=== PATIENT | male | born 1975 | race Caucasian/White ===

== ENCOUNTER 2018-06-18 14:15 | Emergency (ER) | payer OTHER, MEDICARE ==
[~2018-06-18] VITALS: Ht 177.8 cm; Wt 81.6 kg
--- OUTSIDE RECORDS SUMMARY | 2018-06-18 14:19 | XMS REPORT ---
Author Author Luann Lang [facility] Address [address] [place] [address] Care Team Providers Care Palm Gatherer Name Role Phone Luann Lang Unavailable PROBLEMS Type Condition ICD9-CM Code [id number] Code Onset Dates Condition Status SNOMED Code Problem Other chronic pain G89.29 Active 67048209 Problem PTSD (post-traumatic stress disorder) F43.10 Active 00696861 Problem Seasonal allergic rhinitis due to pollen J30.1 Active 98606032 ALLERGIES No Information SOCIAL HISTORY Never Assessed PLAN OF CARE VITAL SIGNS MEDICATIONS Medication Instructions Dosage Frequency Start Date End Date Duration Status Gabapentin 400 MG Orally Three times a day 1 capsule 8h 30 days Active BusPIRone HCl 10 MG Orally three times a day 2 tablets 8h 30 days Active Wellbutrin SR 150 MG Orally Twice a day 1 tablet 12h 30 days Active Zanaflex 4 MG Orally Three times a day 1 tablet as needed 8h 30 days Active Meloxicam 15 MG Orally Once a day 1 tablet 24h 30 days Active RESULTS No Results PROCEDURES No Known procedures IMMUNIZATIONS No Known Immunizations MEDICAL (GENERAL) HISTORY Type Description Date Medical History Post traumatic stress disorder (PTSD) Surgical History vasectomy 2004 Surgical History vasectomy reversal 2010 Surgical History Back surgery - nerve stimulator placement 2013
--- OUTSIDE RECORDS SUMMARY | 2018-06-18 14:20 | XMS REPORT ---
Author Author AN WEAVER Organization [facility] Address [address] [place] [address] Care Team Providers Care Weapons Engineer Name Role Phone AN WEAVER Unavailable PROBLEMS Type Condition ICD9-CM Code ZGH56-DA Code Onset Dates Condition Status SNOMED Code Problem PTSD (post-traumatic stress disorder) F43.10 Active 25757583 ALLERGIES No Information ENCOUNTERS Encounter Location Date Diagnosis [place] [id number] [place] [address] [phone]- [phone] Mar, Encounter for drug screening Z02.83 [place] [address] [place] [id number] [place] [address] 49411- 4464 Mar, PTSD (post-traumatic stress disorder) F43.10 [place] [address] [place] [id number] [place] [address] 19989- [phone] Feb, Lumbar neuritis M54.16 [place] [address] [place] [id number] [place] [address] 99145- 5387 Feb, PTSD (post-traumatic stress disorder) F43.10 [place] [address] [place] [id number] [place] [address] 87770- [phone] Feb, PTSD (post-traumatic stress disorder) F43.10 [place] [address] [place] [address] 57931- 2121 Jan, PTSD (post-traumatic stress disorder) F43.10 and Lumbar neuritis M54.16 IMMUNIZATIONS No Known Immunizations SOCIAL HISTORY Never Assessed REASON FOR VISIT Controlled Med Refill 02/22/17 PLAN OF CARE VITAL SIGNS MEDICATIONS Medication Instructions Dosage Frequency Start Date End Date Duration Status Xanax 1 MG Orally Twice a day 1 tablet 12h Jan, 28 days Active Oxycodone-Acetaminophen 10-325 MG Orally every 6 hrs 1 tablet as needed 6h Feb, 28 days Active RESULTS No Results PROCEDURES No Known procedures INSTRUCTIONS MEDICATIONS ADMINISTERED No Known Medications MEDICAL (GENERAL) HISTORY Type Description Date Medical History PTSD Medical History spinal stenosis Medical History anxiety Medical History depression Surgical History spinal stenosis surgery- fused L5 and S1 2010 Surgical History spinal stimulater 11/2011
--- OUTSIDE RECORDS SUMMARY | 2018-06-18 14:20 | XMS REPORT ---
Author Author Luann Lang [facility] Address [address] [place] [address] Care Team Providers Care Tobacco Farmworker Name Role Phone Luann Lang Unavailable PROBLEMS Type Condition ICD9-CM Code BYV78-VE Code Onset Dates Condition Status SNOMED Code Problem Other chronic pain G89.29 Active 62163582 Problem PTSD (post-traumatic stress disorder) F43.10 Active 08647963 Problem Seasonal allergic rhinitis due to pollen J30.1 Active 82115599 ALLERGIES Substance Reaction Event Type Date Status N.K.D.A. Unknown Non Drug Allergy June, Unknown SOCIAL HISTORY No smoking Hx information available PLAN OF CARE Activity Details Follow Up prn Reason:null VITAL SIGNS Heart Rate 105 /min 2016-07-18 Temperature 97.3 degrees Fahrenheit 2016-07-18 BMI 24.78 kg/m2 2016-07-18 Height 74 in 2016-07-18 Weight 193 lbs 2016-07-18 Blood pressure systolic 131 mm Hg 2016-07-18 Blood pressure diastolic 84 mm Hg 2016-07-18 MEDICATIONS Medication Instructions Dosage Frequency Start Date End Date Duration Status Zanaflex 4 MG Orally Three times a day 2 capsule as needed 8h Oct, 30 days Active Wellbutrin SR 150 MG Orally Twice a day 1 tablet 12h 30 days Active BusPIRone HCl 10 MG Orally three times a day 1 tablet 8h 30 days Active Oxycodone-Acetaminophen 10-325 MG Orally every 6 hrs 1 tablet as needed 6h Jul, 30 days Active Meloxicam 15 MG Orally Once a day 1 tablet 24h Oct, 30 days Active Gabapentin 400 MG Orally Three times a day 1 capsule 8h 30 days Active Valium 5 MG Orally Twice a day 1 tablet as needed 12h 30 days Active RESULTS No Results PROCEDURES Procedure Date Ordered Related Diagnosis Body Site INJ TRIAMCINOLONE ACETONIDE 10 MG July 18, 2016 DRAININJECT MJR JOINTBURSAARTHRO, ASP ANDOR INJ; MAJOR JT OR BURSA (EG, SHOULDER, HIP, KNEE JOINT, SUBACROMIALBURSA) July 18, 2016 OFFICEOUTPATIENT VISIT NEW OFFICE OR OTHER OUTPATIENT VISIT FOR THE EVALUATION AND MANAGEMENT OF A NEW PATIENT, WHICH REQUIRES THESE July 18, 2016 THERPROPHDIAG INJ SCIM THERAPEUTIC, PROPHYLACTIC, OR DIAGNOSTIC INJECTION ( SPECIFY SUBSTANCE OR DRUG); SUBCUTANEOUS OR INTRAMUSCULAR July 18, 2016 IMMUNIZATIONS Vaccine Route Administration Date Status Kenalog IM Intramuscular July 18, 2016 Administered
--- OUTSIDE RECORDS SUMMARY | 2018-06-18 14:20 | XMS REPORT ---
Author Author AN WEAVER Organization [facility] Address [address] [place] [address] Care Team Providers Care Lead Setter Name Role Phone MEG AN Unavailable PROBLEMS Type Condition ICD9-CM Code VLT87-PL Code Onset Dates Condition Status SNOMED Code Problem PTSD (post-traumatic stress disorder) F43.10 Active 78895317 ALLERGIES Substance Reaction Event Type Date Status Clonazepam anger Drug Allergy Feb, Active ENCOUNTERS Encounter Location Date Diagnosis [place] [id number] [place] [address] 54337- [phone] Mar, Encounter for drug screening Z02.[address] [address]- [address] Mar, PTSD (post-traumatic stress disorder) F43.10 [place] [address] [place] [id number] [place] [address] 72864- [phone] Feb, Lumbar neuritis M54.16 [place] [address] [place] [id number] [place] [address] 44796- 3182 Feb, PTSD (post-traumatic stress disorder) F43.10 [place] [address] [place] [id number] [place] [address] 91813- 0752 Feb, PTSD (post-traumatic stress disorder) F43.10 [place] [address] [place] [id number] [place] [address] [phone]- 7285 Jan, PTSD (post-traumatic stress disorder) F43.10 and Lumbar neuritis M54.16 IMMUNIZATIONS No Known Immunizations SOCIAL HISTORY Never Assessed REASON FOR VISIT Neuritis, medication no longer works-[place] PLAN OF CARE VITAL SIGNS Height 70.5 in 2017-03-11 Weight 193.6 lbs 2017-03-11 Temperature 97.8 degrees Fahrenheit 2017-03-11 Heart Rate 64 bpm 2017-03-11 Respiratory Rate 20 2017-03-11 BMI 27.38 kg/m2 2017-03-11 Blood pressure systolic 122 mmHg 2017-03-11 Blood pressure diastolic 68 mmHg 2017-03-11 MEDICATIONS Medication Instructions Dosage Frequency Start Date End Date Duration Status Mens Multivitamin Plus Active BuPROPion HCl ER (SR) 150 MG Orally Twice a day 1 tablet 12h Active Oxycodone-Acetaminophen 10-325 MG Orally every 6 hrs 1 tablet as needed 6h Feb, 28 days Active Xanax 1 MG Orally Twice a day 1 tablet 12h Jan, 28 days Active Tizanidine HCl 4 MG Orally 3 times a day PRN 1 tablet as needed Active BusPIRone HCl 10 mg Orally 3 times a day 2 tablets 8h Active Gabapentin 400 mg Orally 4 times a day 1 capsule 6h Active RESULTS No Results PROCEDURES Procedure Date Ordered Result Body Site [facility] VISIT ESTABLISHED PATIENT Mar 11, 2017 INSTRUCTIONS MEDICATIONS ADMINISTERED No Known Medications MEDICAL (GENERAL) HISTORY Type Description Date Medical History PTSD Medical History spinal stenosis Medical History anxiety Medical History depression Surgical History spinal stenosis surgery- fused L5 and S1 2010 Surgical History spinal stimulater 11/2011
--- OUTSIDE RECORDS SUMMARY | 2018-06-18 14:20 | XMS REPORT ---
Author Author AN WEAVER Organization [facility] Address [address] [place] [address] Care Team Providers Care Breaker Layer Name Role Phone AN WEAVER Unavailable PROBLEMS Type Condition ICD9-CM Code [id number] Code Onset Dates Condition Status SNOMED Code Problem PTSD (post-traumatic stress disorder) F43.10 Active 21611778 ALLERGIES No Information ENCOUNTERS Encounter Location Date Diagnosis [place] [id number] [place] [address] [phone]- [phone] Mar, Encounter for drug screening Z02.83 [place] [address] [place] [id number] [place] [address] 875856- 6280 Mar, PTSD (post-traumatic stress disorder) F43.10 [place] [address] [place] [id number] [place] [address] 15042- 3207 Feb, Lumbar neuritis M54.16 [place] [address] [place] [id number] [place] [address] 13789- 0932 Feb, PTSD (post-traumatic stress disorder) F43.10 [place] [address] [place] [id number] [place] [address] 70075- 7862 Feb, PTSD (post-traumatic stress disorder) F43.10 [place] [address] [place] [id number] [place] [address] 50386- 8669 Jan, PTSD (post-traumatic stress disorder) F43.10 and Lumbar neuritis M54.16 IMMUNIZATIONS No Known Immunizations SOCIAL HISTORY Never Assessed REASON FOR VISIT UDS PLAN OF CARE VITAL SIGNS MEDICATIONS Unknown Medications RESULTS Name Result Date Reference Range URINE DRUG SCREEN (IN HOUSE) 2017-03-22 Lot # [id number] Exp date 08/2018 Control + COCAINE Negative AMPH Negative MTD Negative THC POSITIVE OPIATE Negative BENZO POSITIVE PCP Negative BAR Negative OXY Negative MAMP Negative TCA Negative BUP Negative MDMA Negative PROCEDURES Procedure Date Ordered Result Body Site DRUG TEST PRSMV DIR OPT OBS Mar 22, 2017 INSTRUCTIONS MEDICATIONS ADMINISTERED No Known Medications MEDICAL (GENERAL) HISTORY Type Description Date Medical History PTSD Medical History spinal stenosis Medical History anxiety Medical History depression Surgical History spinal stenosis surgery- fused L5 and S1 2010 Surgical History spinal stimulater 11/2011
--- OUTSIDE RECORDS SUMMARY | 2018-06-18 14:20 | XMS REPORT ---
Author Author Luann Lang Organization [facility] Address [address] [place] [address] Care Team Providers Care Hydro Electric Station Operator Name Role Phone Luann Lang Unavailable PROBLEMS Type Condition ICD9-CM Code FXN72-MM Code Onset Dates Condition Status SNOMED Code Problem Other chronic pain G89.29 Active 46467451 Problem PTSD (post-traumatic stress disorder) F43.10 Active 95499291 Problem Seasonal allergic rhinitis due to pollen J30.1 Active 20786058 ALLERGIES No Information ENCOUNTERS Encounter Location Date Diagnosis [address] [place] [id number] Mar, [facility] [address] [place], [place] [id number] Jan, Other chronic pain G89.[address] [place] [id number] Oct, Other chronic pain G89.29 and PTSD (post-traumatic stress disorder ) F43.[address] [place] [id number] June, Dorsalgia, unspecified M54.9 ; Other chronic pain G89.29 ; PTSD ( post-traumatic stress disorder) F43.10 ; Cough R05 and Seasonal allergic rhinitis due to pollen J30.1 IMMUNIZATIONS No Known Immunizations SOCIAL HISTORY Never Assessed REASON FOR VISIT medication list PLAN OF CARE VITAL SIGNS MEDICATIONS Unknown Medications RESULTS No Results PROCEDURES No Known procedures INSTRUCTIONS MEDICATIONS ADMINISTERED No Known Medications MEDICAL (GENERAL) HISTORY Type Description Date Medical History Post traumatic stress disorder (PTSD) Surgical History vasectomy 2005 Surgical History vasectomy reversal 2010 Surgical History Back surgery - nerve stimulator placement 2013
--- OUTSIDE RECORDS SUMMARY | 2018-06-18 14:20 | XMS REPORT ---
Author Author AN WEAVER Organization [facility] Address [address] [place] [address] Care Team Providers Care Physically Impaired Teacher Name Role Phone AN WEAVER Unavailable PROBLEMS Type Condition ICD9-CM Code APJ79-DX Code Onset Dates Condition Status SNOMED Code Problem PTSD (post-traumatic stress disorder) F43.10 Active 52681790 ALLERGIES No Information ENCOUNTERS Encounter Location Date Diagnosis [place] [address] [place] [id number] [place] [address] [phone] Mar, 2017 Encounter for drug screening Z02.83 [place] [address] [place] [id number] [place] [address] [phone]- [phone] Mar, PTSD (post-traumatic stress disorder) F43.10 [place] [address] [place] [address] [id number] [place] [address] [phone]- 0944 Feb, Lumbar neuritis M54.16 [place] [address] [place] [address] [id number] [place] [address] 02982- [phone] Feb, PTSD (post-traumatic stress disorder) F43.10 [place] [address] [place] [address] [id number] [place] [address] [phone]- [phone] Feb, PTSD (post-traumatic stress disorder) F43.10 [place] [address] [place] [address] [id number] [place] [address] [phone] Jan, PTSD (post-traumatic stress disorder) F43.10 and Lumbar neuritis M54.16 IMMUNIZATIONS No Known Immunizations SOCIAL HISTORY Never Assessed REASON FOR VISIT PLAN OF CARE VITAL SIGNS MEDICATIONS Medication Instructions Dosage Frequency Start Date End Date Duration Status Xanax 1 MG Orally Twice a day 1 tablet 12h 08 Jan, 2017 28 days Active RESULTS No Results PROCEDURES No Known procedures INSTRUCTIONS MEDICATIONS ADMINISTERED No Known Medications MEDICAL (GENERAL) HISTORY Type Description Date Medical History PTSD Medical History spinal stenosis Medical History anxiety Medical History depression Surgical History spinal stenosis surgery- fused L5 and S1 2010 Surgical History spinal stimulater 11/2011
--- OUTSIDE RECORDS SUMMARY | 2018-06-18 14:20 | XMS REPORT ---
Author Author AN WEAVER Organization [facility] Address [address] [place] [address] Care Team Providers Care Circular Saw Filer Name Role Phone AN WEAVER Unavailable PROBLEMS Type Condition ICD9-CM Code [id number] Code Onset Dates Condition Status SNOMED Code Problem PTSD (post-traumatic stress disorder) F43.10 Active 03034315 ALLERGIES Substance Reaction Event Type Date Status Clonazepam anger Drug Allergy Jan, Active ENCOUNTERS Encounter Location Date Diagnosis [place] [id number] [place] [address] [phone] Mar, 2017 Encounter for drug screening Z02.[address] [phone]- [phone] Mar, PTSD (post-traumatic stress disorder) F43.10 [place] [address] [place] [id number] [place] [address] 43852- 0154 Feb, Lumbar neuritis M54.16 [place] [address] [place] [address] [id number] [place] [address] 47404- [phone] Feb, PTSD (post-traumatic stress disorder) F43.10 [place] [address] [place] [address] [id number] [place] [address] 48915- 1272 Feb, PTSD (post-traumatic stress disorder) F43.10 [place] [address] [place] [address] [id number] [place] [address] [phone] Jan, PTSD (post-traumatic stress disorder) F43.10 and Lumbar neuritis M54.16 IMMUNIZATIONS No Known Immunizations SOCIAL HISTORY Never Assessed REASON FOR VISIT Pain, L5 S1 serguries from injury while in the [facility] PLAN OF CARE Activity Details Follow Up 4 Weeks Reason:ptsd, lumbar neuritis VITAL SIGNS Height 70.5 in 2017-01-25 Weight 195.8 lbs 2017-01-25 Temperature 98.1 degrees Fahrenheit 2017-01-25 Heart Rate 64 bpm 2017-01-25 Respiratory Rate 18 2017-01-25 BMI 27.69 kg/m2 2017-01-25 Blood pressure systolic 118 mmHg 2017-01-25 Blood pressure diastolic 76 mmHg 2017-01-25 MEDICATIONS Medication Instructions Dosage Frequency Start Date End Date Duration Status Tizanidine HCl 4 MG Orally 3 times a day PRN 1 tablet as needed Active Oxycodone-Acetaminophen 10-325 MG Orally every 6 hrs PRN 1 tablet Jan Active Xanax 1 MG Orally 3 times a day 1 tablet 8h Jan, Active Mens Multivitamin Plus Active BusPIRone HCl 10 mg Orally 3 times a day 2 tablets 8h Active BuPROPion HCl ER (SR) 150 MG Orally Twice a day 1 tablet 12h Active Gabapentin 400 mg Orally 4 times a day 1 capsule 6h Active RESULTS No Results PROCEDURES No Known procedures INSTRUCTIONS MEDICATIONS ADMINISTERED No Known Medications MEDICAL (GENERAL) HISTORY Type Description Date Medical History PTSD Medical History spinal stenosis Medical History anxiety Medical History depression Surgical History spinal stenosis surgery- fused L5 and S1 2010 Surgical History spinal stimulater 11/2011
[2018-06-18 14:35] LABS: HEMOGLOBIN 13.8 G/DL (13.3-17.7); MEAN PLATELET VOLUME 11.1 FL (7.4-10.4); RED CELL DISTRIBUTION WIDTH 13.4 % (10.0-14.5); WHITE BLOOD COUNT 6.9 10^3/uL (4.3-11.0)
[2018-06-18] MEDS ORDERED: GABA300C (14:36)
[2018-06-18] MEDS ORDERED: ALPR0.5T (14:36)
[2018-06-18] MEDS ORDERED: BUPR75TA5 (14:36)
[2018-06-18] MEDS ORDERED: MELO15TA14 (14:36)
[2018-06-18] MEDS ORDERED: MORP15TA (14:36)
[2018-06-18] MEDS ORDERED: FLUO20CA25 (14:36)
[2018-06-18 14:54] LABS: ALANINE AMINOTRANSFERASE 22 U/L (0-55); ALBUMIN 3.8 GM/DL (3.2-4.5); ALKALINE PHOSPHATASE 79 U/L (40-136); BILIRUBIN,DIRECT 0.2 MG/DL (0.0-0.3); BILIRUBIN,INDIRECT 0.1 MG/DL; BILIRUBIN,TOTAL 0.3 MG/DL (0.1-1.0); BUN/CREATININE RATIO 18; CALCIUM 8.9 MG/DL (8.5-10.1); CARBON DIOXIDE 23 MMOL/L (21-32); CHLORIDE 108 MMOL/L (98-107); CREATININE SERUM 0.93 MG/DL (0.60-1.30); GFR ESTIMATED > 60; GLUCOSE 85 MG/DL (70-105); POTASSIUM 4.4 MMOL/L (3.6-5.0); SODIUM 138 MMOL/L (135-145); TOTAL PROTEIN 6.5 GM/DL (6.4-8.2)
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
--- NOTE | 2018-06-18 15:27 | NUR ---
[place] IN ROOM TALKING TO PT AT THIS TIME.
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
--- NOTE | 2018-06-18 15:50 | NUR ---
ELIO HAS TAKEN THE C-COLLAR OFF. PT UP AT BEDSIDE.
[2018-06-18 16:59] VITALS: BP 132/94
== END 2018-06-18 16:59 | disposition home or self-care (01) ==
LOC: ER 14:16
DX: R10.2 Pelvic and perineal pain (principal); R51 Headache; E04.1 Nontoxic single thyroid nodule; F43.10 Post-traumatic stress disorder, unspecified; F32.9 Major depressive disorder, single episode, unspecified; Z98.890 Other specified postprocedural states; V49.40XA Driver injured in collision with unspecified motor vehicles in traffic accident, initial encounter
CPT/HCPCS: 36415; 70450; 71045; 72125; 72131; 80048; 80076; 80320; 85027; 93041